=== PATIENT | female | born 1975 | race Two or more races ===

== ENCOUNTER 2024-02-11 19:49 | Inpatient (IN) | payer SELFPAY ==
[~2024-02-11] VITALS: Ht 154.9 cm; Wt 90.6 kg
--- NOTE | 2024-02-11 20:26 | ED.PDOC ---
AUTOMOTIVE PARTS SPECIALIST HPI Comments A 48 year old female presents to the ED with a chief complaint of vaginal bleeding onset 3 weeks. Patient states she began experiencing vaginal bleeding 3 weeks ago. The first week blood was a dark brown color, second week was bright red and the third week was red and heavy bleeding as well as light abdominal cramps and generalized weakness. Patient states she would place new tampon and shortly after the blood would "gush", patient states this bleeding is abnormal for her. She has not seen an OBGYN or PCP due to problems with her insurance. Patient has no past medical history. Denies nausea, vomiting, diarrhea, chest pain, SOB. No other symptoms or modifying factors present at this time. Chief Complaint: Vaginal Bleed Time Seen by MD: 20:18 Reviewed Notes: Medications, Allergies Allergies: Coded Allergies: NO KNOWN ALLERGIES (Unverified , 02/11/24) Information Source: Patient Mode of Arrival: Ambulatory Timing: Weeks Prehospital treatment: None Severity: Moderate Associated Signs and Symptoms: Vaginal Bleeding, Abdominal Pain, Cramping Past Medical History PAST MEDICAL HISTORY: Denies Surgical History: Cholecystectomy, , Tubal Ligation FOLD SKIVER History: No Pertinent FOLD SKIVER History Family History Family History: Reviewed,noncontributory to illness, Unknown Social History Smoker: Non-Smoker Alcohol: Denies ETOH Use Drugs: Denies Drug Use Lives In: Home Constitutional: reports: weakness; denies: chills, diaphoresis, fatigue, fever, malaise, sweats, others EENTM: denies: blurred vision, double vision, ear bleeding, ear discharge, ear drainage, ear pain, ear ringing, eye pain, eye redness, hearing loss, mouth pain, mouth swelling, nasal discharge, nose bleeding, nose congestion, nose pain, photophobia, tearing, throat pain, throat swelling, voice changes, others Respiratory: denies: cough, hemoptysis, orthopnea, SOB at rest, shortness of breath, SOB with excertion, stridor, wheezing, others Cardiovascular: denies: chest pain, dizzy spells, diaphoresis, Dyspnea on exertion, edema, irregular heart beat, left arm pain, lightheadedness, palpitations, PND, syncope, others Gastrointestinal: reports: abdominal pain; denies: abdomen distended, blood streaked bowels, constipated, diarrhea, dysphagia, difficulty swallowing, hematemesis, melena, nausea, poor appetite, poor fluid intake, rectal bleeding, rectal pain, vomiting, others Genitourinary: reports: abnormal vagina bleeding; denies: burning, dyspareunia, dysuria, flank pain, frequency, hematuria, incontinence, pain, , vagina discharge, urgency, others Neurological: denies: dizziness, fainting, headache, left sided numbness, left sided weakness, numbness, paresthesia, pre-existing deficit, right sided numbness, right sided weakness, seizure, speech problems, tingling, tremors, weakness, others Musculoskeletal: denies: back pain, gout, joint pain, joint swelling, muscle pain, muscle stiffness, neck pain, others Integumetry: denies: bruises, change in color, change in hair/nails, dryness, laceration, lesions, lumps, rash, wounds, others Allergic/Immunocompromised: denies: Difficulty Healing, Frequent Infections, Hives, Itching, others Hematologic/Lymphatic: denies: anemia, blood clots, easy bleeding, easy bruising, swollen glands, others Endocrine: denies: excessive hunger, excessive sweating, excessive thirst, excessive urination, flushing, intolerance to cold, intolerance to heat, unexplained weight gain, unexplained weight loss, others Psychiatric: denies: anxiety, bipolar disorder, depression, hopeless, panic disorder, schizophrenia, sleepless, suicidal, others All Other Systems: Reviewed and Negative Physical Exam General Appearance: No Apparent Distress, Normal HEENT: Normal ENT Inspection, Pharynx Normal, TMs Normal Neck: Full Range of Motion, Non-Tender, Normal, Normal Inspection Respiratory: Chest Non-Tender, Lungs Clear, No Accessory Muscle Use, No Respiratory Distress, Normal Breath Sounds Cardiovascular: No Edema, No JVD, No Murmur, No Gallop, Normal Peripheral Pulses, Regular Rate/Rhythm Breast Exam: Deferred Gastrointestinal: No Organomegaly, Non Tender, No Pulsatile Mass, Normal Bowel Sounds, Soft Genitalia: Deferred Pelvic: Deferred Rectal: Deferred Extremities: No calf tenderness, Normal capillary refill, Normal inspection, Normal range of motion, Non-tender, No pedal edema Musculoskeletal : Apperance: Normal Neurologic: Alert, drawer in jacquard loom II-XII nml as Tested, No Motor Deficits, Normal Affect, Normal Mood, No Sensory Deficits Cerebellar Function: Normal Reflexes: Normal Skin: Dry, Normal Color, Warm Lymphatic: No Adenopathy Was a procedure done? Was a procedure done?: No Differential Diagnosis (FOLD SKIVER) Vaginal Bleeding: Blood Loss Anemia, Dysmenorrhea, Menorrhagia, Menstrual Bleeding, UTI Mass / Lesion: N/A Vaginal Discharge: N/A X-Ray, Labs, Meds, VS Vital Signs Date Time Temp Pulse Resp B/P (MAP) Pulse Ox O2 Delivery O2 Flow Rate FiO2 02/11/24 20:12 98.7 88 18 111/69 (83) 97 Lab Test 02/11/24 21:07 02/11/24 20:39 Range/Units Urine Color Light-red Yellow Urine Clarity Turbid H Clear Urine pH 5.5 5.0-9.0 Urine Specific [place] 1.011 1.001-1.035 Urine Protein 1+ H Negative Urine Ketones Trace Negative Urine Blood 3+ H Negative /uL Urine Nitrite Negative Negative Urine Bilirubin Negative Negative Urine Urobilinogen Normal Negative mg/dL Urine Leukocyte Esterase 1+ Negative /uL Urine RBC 1899 0 - 4 /hpf Urine WBC 7 0 - 5 /hpf Urine Squamous Epithelial Cells Few <5 /hpf Urine Bacteria None seen None Seen /hpf Urine Glucose Normal Normal mg/dL White Blood Count 7.7 4.4-10.8 10^3/uL Red Blood Count 4.43 4.0-5.20 10^6/uL Hemoglobin 12.9 12.2-16.2 g/dL Hematocrit 39.1 36.0-46.0 % Mean Corpuscular Volume 88.2 80.0-100.0 fL Mean Corpuscular Hemoglobin 29.2 28.0-32.0 pg Mean Corpuscular Hemoglobin Concent 33.1 32.0-36.0 g/dL Red Cell Distribution Width 15.3 H 11.8-14.3 % Platelet Count 423 140-450 10^3/uL Mean Platelet Volume 6.7 L 6.9-10.8 fL Neutrophils (%) (Auto) 51.0 37.0-80.0 % Lymphocytes (%) (Auto) 32.1 10.0-50.0 % Monocytes (%) (Auto) 7.0 0.0-12.0 % Eosinophils (%) (Auto) 6.6 0.0-7.0 % Basophils (%) (Auto) 3.3 H 0.0-2.0 % Neutrophils # (Auto) 4.0 1.6-8.6 10 ^3/uL Lymphocytes # (Auto) 2.5 0.4-5.4 10 ^3/uL Monocytes # (Auto) 0.5 0-1.3 10 ^3/uL Eosinophils # (Auto) 0.5 0-0.8 10 ^3/uL Basophils # (Auto) 0.3 H 0-0.2 10 ^3/uL Nucleated Red Blood Cells 0.0 % Prothrombin Time 10.7 9.3-11.8 sec Prothrombin Time INR 1.01 0.9-1.15 Sodium Level 140 136-145 mmol/L Potassium Level 4.0 3.5-5.1 mmol/L Chloride Level 109 H 98-107 mmol/L Carbon Dioxide Level 20 20-31 mmol/L Anion Gap 11 5-15 Blood Urea Nitrogen 6 L 9-23 mg/dL Creatinine 0.77 0.550-1.02 mg/dL Glomerular Filtration Rate Calc 96 >90 mL/min BUN/Creatinine Ratio 7.8 L 10.0-20.0 Serum Glucose 99 74-106 mg/dL Calcium Level 8.9 8.7-10.4 mg/dL [place] [id number] Ph: [phone] DIAGNOSTIC IMAGING Diagnostic Imaging Report : [id number] Signed PATIENT: ERIN SAEEDCCT: [id number] UNIT: [id number] : 1975 LOC: ER ROOM / BED: / AGE / SEX: 48 / F ADM STATUS: REG ER SERVICE 19 ORDERING PHYSICIAN: RAMIRO SANTOS MD PROCEDURE(s): ABPLIV - CT AB PEL WITH IV CON ONLY REASON: abdominal pain, vaginal bleeding ORDER NUMBER(s): [id number], ACCESSION NUMBER(s): [id number] Exam: CT CT AB PEL WITH IV CON ONLY History: abdominal pain, vaginal bleeding Comparison Study: None available at time of dictation. Technique: Multidetector spiral CT of the abdomen and pelvis was performed from lung bases to pubic symphysis. Intravenous contrast was administered during this examination. Portal venous imaging was obtained. Axial, coronal and sagittal multiplanar reformats were performed by the technologist on a separate workstation. Radiation Dose : 1. Abdomen/Pelvis: CTDIvol 25 mGy, DLP 1255 mGy*cm. Findings: Lung Bases: No acute or significant lung base finding. Normal heart size. No pleural or pericardial effusion. Liver: The liver is normal in size. No focal lesions. Normal hepatic vascular enhancement. Hepatic steatosis. Gallbladder and Biliary Tree: Gallbladder is surgically absent. Spleen: Unremarkable Pancreas: The pancreas is normal in appearance without focal lesions or abnormal enhancement. Adrenal Glands: Unremarkable Kidneys: Kidneys demonstrate normal symmetric enhancement without focal lesions, calculi or hydronephrosis. Bladder: Unremarkable Bowel: The stomach is grossly normal in appearance. Small bowel and colon are normal in caliber and distribution. Normal appendix is visualized in the right lower quadrant without findings of appendicitis. Ascites: Absent Lymphadenopathy: No mesenteric, retroperitoneal or periportal lymphadenopathy. Abdominal Wall and Mesentery: Unremarkable. Vasculature: The visualized abdominal aorta is normal in size and caliber. Abdo joo and pelvic vessels demonstrate normal enhancement. Pelvic Organs: Left ovarian cyst measuring 2.7 cm. 1 cm hypodensity near the cervix most likely representing an nabothian cyst. Mild distention of the lower uterine segment measuring up to 1.7 cm in AP diameter with internal areas of high attenuation. Musculoskeletal: No aggressive focal bony lesions, acute fractures or dis location. IMPRESSION: Mild distention of the lower uterine segment measuring up to 1.7 cm with internal areas of high attenuation which may represent blood products. Consider further evaluation with pelvic ultrasound. Left ovarian cyst measuring 2.7 cm. ATED BY: BECKI ALBERTS DO DICTATED DATE/TIME: 02/11/242118 SIGNED BY: BECKI ALBERTS DO SIGNED DATE/TIME: 02/11/242118 CC: Time of 1ST Reevaluation: 20:48 Reevaluation 1ST: Unchanged Patient Education/Counseling: Diagnosis, Treatment, Prognosis Family Education/Counseling: No Family Present Departure 1 Departure Time of Disposition: 21:35 (Patient with abdominal pain and uncontrolled vaginal bleeding. We will admit patient for further expert workup) Impression: Primary Impression: Vaginal bleeding Additional Impression: Abdominal pain Qualified Codes: R10.84 - Generalized abdominal pain Disposition: 09 ADMITTED INPATIENT Admit to: Med Surg Condition: Serious Critical Care Note Critical Care Time?: No Stability Stability form required: No I personally scribed for RAMIRO SANTOS MD ([email or web address]) on 02/11/24 at 20:26. Electronically submitted by Nata Ramirez ([email or web address]). I personally scribed for RAMIRO SANTOS MD ([email or web address]) on 02/11/24 at 21:28. Electronically submitted by Nata Ramierz ([email or web address]). RAMIRO SANTOS MD Feb 11, 2024 20:26
[2024-02-11 20:59] LABS: Basophils # (auto) 0.3 10 ^3/uL (0-0.2); Basophils % (auto) 3.3 % (0.0-2.0); Eosinophils # (auto) 0.5 10 ^3/uL (0-0.8); Eosinophils % (auto) 6.6 % (0.0-7.0); Hematocrit 39.1 % (36.0-46.0); Hemoglobin 12.9 g/dL (12.2-16.2); Lymphocytes # (auto) 2.5 10 ^3/uL (0.4-5.4); Lymphocytes % (auto) 32.1 % (10.0-50.0); Mean Corpuscular Hemoglobin 29.2 pg (28.0-32.0); Mean Corpuscular Hgb Conc. 33.1 g/dL (32.0-36.0); Mean Corpuscular Volume 88.2 fL (80.0-100.0); Monocytes # (auto) 0.5 10 ^3/uL (0-1.3); Platelet Count (auto) 423 10^3/uL (140-450); Red Blood Cells 4.43 10^6/uL (4.0-5.20); Red Cell Distribution Width 15.3 % (11.8-14.3); White Blood Cell 7.7 10^3/uL (4.4-10.8)
[2024-02-11 21:00] LABS: Chloride 109 mmol/L (98-107); Sodium 140 mmol/L (136-145)
[2024-02-11 21:01] LABS: Anion Gap 11 (5-15); Carbon Dioxide 20 mmol/L (20-31)
[2024-02-11 21:02] LABS: Calcium 8.9 mg/dL (8.7-10.4)
[2024-02-11] MEDS: IOHEXOL 300 MG/ML 100ML BOTTLE IJ ONE (21:02)
[2024-02-11 21:06] LABS: Glucose 99 mg/dL (74-106)
[2024-02-11 21:07] LABS: BUN/Creatinine Ratio 7.8 (10.0-20.0); Blood Urea Nitrogen 6 mg/dL (9-23)
[2024-02-11 21:08] LABS: Urine Bacteria None Seen /hpf (None Seen)
--- NOTE | 2024-02-11 21:22 | DVH ---
Exam: CT CT AB PEL WITH IV CON ONLY History: abdominal pain, vaginal bleeding Comparison Study: None available at time of dictation. Technique: Multidetector spiral CT of the abdomen and pelvis was performed from lung bases to pubic s ymphysis. Intravenous contrast was administered during this examination. Portal venous imaging was obtained. Axial, coronal and sagittal multiplanar reformats were performed by the technologist on a separate workstation. Radiation Dose : 1. Abdomen/Pelvis: CTDIvol 25 mGy, DLP 1255 mGy*cm. Findings: Lung Bases: No acute or significant lung base finding. Normal heart size. No pleural or pericardial effusion. Liver: The liver is normal in size. No focal lesions. Normal hepatic vascular enhancement. Hepatic s teatosis. Gallbladder and Biliary Tree: Gallbladder is surgically absent. Spleen: Unremarkable Pancreas: The pancreas is normal in appearance without focal lesions or abnormal enhancement. Adrenal Glands: Unremarkable Kidneys: Kidneys demonstrate normal symmetric enhancement without focal lesions, calculi or hydroneph rosis. Bladder: Unremarkable Bowel: The stomach is grossly normal in appearance. Small bowel and colon are normal in caliber and d istribution. Normal appendix is visualized in the right lower quadrant without findings of appendici tis. Ascites: Absent Lymphadenopathy: No mesenteric, retroperitoneal or periportal lymphadenopathy. Abdominal Wall and Mesentery: Unremarkable. Vasculature: The visualized abdominal aorta is normal in size and caliber. Abdominal and pelvic vess els demonstrate normal enhancement. Pelvic Organs: Left ovarian cyst measuring 2.7 cm. 1 cm hypodensity near the cervix most likely repre senting an nabothian cyst. Mild distention of the lower uterine segment measuring up to 1.7 cm in AP diameter with internal areas of high attenuation. Musculoskeletal: No aggressive focal bony lesions, acute fractures or dislocation. IMPRESSION: Mild distention of the lower uterine segment measuring up to 1.7 cm with internal areas of high atten uation which may represent blood products. Consider further evaluation with pelvic ultrasound. Left ovarian cyst measuring 2.7 cm.
[2024-02-11 21:30] LABS: INR 1.01 (0.9-1.15); Prothrombin Time 10.7 sec (9.3-11.8)
[2024-02-11 21:32] LABS: Urine Blood 3+ /uL (Negative); Urine Clarity Turbid (Clear); Urine Color Light-Red (Yellow); Urine Protein, UAD 1+ (Negative); Urine Specific Gravity 1.011 (1.001-1.035); Urine Urobilinogen Normal (Negative); Urine WBC 7 /hpf (0 - 5); Urine pH 5.5 (5.0-9.0)
[2024-02-12] VITALS (9 sets, daily range): BP systolic 90–116; BP diastolic 56–73; PULSE 68–76; RESP 14–20; TEMP 97.5–98.7; O2SAT 94–98
--- NOTE | 2024-02-12 00:24 | DVH ---
PELVIC ULTRASOUND WITH TRANSABDOMINAL AND TRANSVAGINAL IMAGING CLINICAL HISTORY: better evaluate x-ray findings COMPARISON: None TECHNIQUE: Transabdominal and transvaginal grayscale, color-flow Doppler, and duplex Doppler was per formed. FINDINGS: Uterus: Measures 10.5 x 5.8 x 5.3 cm. Solid-appearing uterine myometrial lesion measuring approximate ly 1.5 x 1.3 x 1.5 cm. Multiple nabothian cysts noted. Endometrium: Double thickness of the endometrial stripe measures 1.1 cm. Endometrial thickness is uni form. Right ovary is not visualized. Left ovary measures 3.7 x 2.6 x 3.4 cm. This includes an approximatel y 3.0 x 2.1 x 2.6 cm cyst. Left ovary demonstrates dopplerable blood flow on spectral analysis. Small amount of free fluid in the cul-de-sac. IMPRESSION: Small uterine lesion may represent a fibroid. MRI may be obtained to further evaluate. Multiple presumed nabothian cysts. Left ovarian cyst. Right ovary not visualized. HS:Y
[2024-02-12] MEDS ORDERED: TEMAZEPAM 15 MG CAP PO PRN (00:45)
[2024-02-12] MEDS ORDERED: ACETAMINOPHEN 325 MG TAB PO PRN (00:45)
[2024-02-12] MEDS ORDERED: ONDANSETRON HCL 4 MG/2 ML VIAL IV PRN (00:45)
[2024-02-12] MEDS ORDERED: HYDROcodone-ACET 5/325MG TAB PO PRN (00:45)
--- NOTE | 2024-02-12 05:48 | DVHHP2 ---
History of Present Illness Reason for Visit: Vaginal bleed History of Present Illness 48-year-old female presents for evaluation of vaginal bleed. Patient reports three-week history of irregular vaginal bleed. She states that over the past one-week she has been having bright red heavy bleeding with associated lower cramps. Denies nausea or vomiting. Denies cardiac or respiratory symptoms. Past Medical History Denies Past Surgical History , tubal ligation and cholecystectomy Family History Noncontributory Smoke: No ALCOHOL: none Drugs: None Lives: with Family Review of Systems Review of Systems Review of systems are currently negative otherwise addressed HPI. Allergies: Coded Allergies: NO KNOWN ALLERGIES (Unverified , 02/11/24) Medications Current Medications Medications Dose Ordered Sig/Uyen Route Start Time Stop Time Status Last Admin Dose Admin Ceftriaxone Sodium 50 ml @ 100 mls/hr DAILY@09 IV 02/12/24 09:00 Acetaminophen/ Hydrocodone Bitart 1 tab Q4HP PRN PO 02/12/24 00:45 Temazepam 15 mg QHSP PRN PO 02/12/24 00:45 Ondansetron HCl 4 mg Q4HP PRN IV 02/12/24 00:45 Acetaminophen 650 mg Q6HP PRN PO 02/12/24 00:45 Exam Vital Signs Vital Signs Date Time Temp Pulse Resp B/P (MAP) Pulse Ox O2 Delivery O2 Flow Rate FiO2 02/12/24 05:00 97.5 76 20 103/60 (74) 96 97.5 02/12/24 03:03 Room Air* 0 21 Exam Gen: 48-year-old female in mild distress Skin: Warm, dry, normal color and texture, no rash. HEENT: Normocephalic atraumatic, mucous membranes moist and pink. Neck: Cervical and supraclavicular nodes normal without enlargement, trachea is midline, thyroid gland is normal without masses. Pulmonary: Clear to auscultation and percussion bilaterally. Cardiac: Regular rate and rhythm. No murmur Abdomen: Soft, nontender, nondistended, bowel sounds present all 4 quadrants, no guarding, no rigidity, no organomegaly. Extremities: No cyanosis, clubbing, no edema Neuro: Cranial nerves II through XII grossly intact, normal affect and speech, no focal motor deficits. Labs/Xrays ORDERING PHYSICIAN: RAMIRO SANTOS MD PROCEDURE(s): ABPLIV - CT AB PEL WITH IV CON ONLY REASON: abdominal pain, vaginal bleeding ORDER NUMBER(s): [id number], ACCESSION NUMBER(s): [id number] Exam: CT CT AB PEL WITH IV CON ONLY History: abdominal pain, vaginal bleeding Comparison Study: None available at time of dictation. Technique: Multidetector spiral CT of the abdomen and pelvis was performed from lung bases to pubic symphysis. Intravenous contrast was administered during this examination. Portal venous imaging was obtained. Axial, coronal and sagittal multiplanar reformats were performed by the technologist on a separate workstation. Radiation Dose : 1. Abdomen/Pelvis: CTDIvol 25 mGy, DLP 1255 mGy*cm. Findings: Lung Bases: No acute or significant lung base finding. Normal heart size. No pleural or pericardial effusion. Liver: The liver is normal in size. No focal lesions. Normal hepatic vascular enhancement. Hepatic steatosis. Gallbladder and Biliary Tree: Gallbladder is surgically absent. Spleen: Unremarkable Pancreas: The pancreas is normal in appearance without focal lesions or abnormal enhancement. Adrenal Glands: Unremarkable Kidneys: Kidneys demonstrate normal symmetric enhancement without focal lesions, calculi or hydronephrosis. Bladder: Unremarkable Bowel: The stomach is grossly normal in appearance. Small bowel and colon are normal in caliber and distribution. Normal appendix is visualized in the right lower quadrant without findings of appendicitis. Ascites: Absent Lymphadenopathy: No mesenteric, retroperitoneal or periportal lymphadenopathy. Abdominal Wall and Mesentery: Unremarkable. Vasculature: The visualized abdominal aorta is normal in size and caliber. Abdominal and pelvic vessels demonstrate normal enhancement. Pelvic Organs: Left ovarian cyst measuring 2.7 cm. 1 cm hypodensity near the cervix most likely representing an nabothian cyst. Mild distention of the lower uterine segment measuring up to 1.7 cm in AP diameter with internal areas of high attenuation. Musculoskeletal: No aggressive focal bony lesions, acute fractures or dislocation. IMPRESSION: Mild distention of the lower uterine segment measuring up to 1.7 cm with internal areas of high attenuation which may represent blood products. Consider further evaluation with pelvic ultrasound. Left ovarian cyst measuring 2.7 cm. RING PHYSICIAN: RAMIRO SANTOS MD PROCEDURE(s): PELUS - PELVIC REASON: better evaluate x-ray findings ORDER NUMBER(s): [id number], ACCESSION NUMBER(s): [id number] PELVIC ULTRASOUND WITH TRANSABDOMINAL AND TRANSVAGINAL IMAGING CLINICAL HISTORY: better evaluate x-ray findings COMPARISON: None TECHNIQUE: Transabdominal and transvaginal grayscale, color-flow Doppler, and duplex Doppler was performed. FINDINGS: Uterus: Measures 10.5 x 5.8 x 5.3 cm. Solid-appearing uterine myometrial lesion measuring approximately 1.5 x 1.3 x 1.5 cm. Multiple nabothian cysts noted. Endometrium: Double thickness of the endometrial stripe measures 1.1 cm. Endometrial thickness is uniform. Right ovary is not visualized. Left ovary measures 3.7 x 2.6 x 3.4 cm. This includes an approximately 3.0 x 2.1 x 2.6 cm cyst. Left ovary demonstrates dopplerable blood flow on spectral analysis. Small amount of free fluid in the cul-de-sac. IMPRESSION: Small uterine lesion may represent a fibroid. MRI may be obtained to further evaluate. Multiple presumed nabothian cysts. Left ovarian cyst. Right ovary not visualized. HS:Y Labs Test 02/11/24 21:07 02/11/24 20:39 Range/Units Urine Color Light-red Yellow Urine Clarity Turbid H Clear Urine pH 5.5 5.0-9.0 Urine Specific [place] 1.011 1.001-1.035 Urine Protein 1+ H Negative Urine Ketones Trace Negative Urine Blood 3+ H Negative /uL Urine Nitrite Negative Negative Urine Bilirubin Negative Negative Urine Urobilinogen Normal Negative mg/dL Urine Leukocyte Esterase 1+ Negative /uL Urine RBC 1899 0 - 4 /hpf Urine WBC 7 0 - 5 /hpf Urine Squamous Epithelial Cells Few <5 /hpf Urine Bacteria None seen None Seen /hpf Urine Glucose Normal Normal mg/dL White Blood Count 7.7 4.4-10.8 10^3/uL Red Blood Count 4.43 4.0-5.20 10^6/uL Hemoglobin 12.9 12.2-16.2 g/dL Hematocrit 39.1 36.0-46.0 % Mean Corpuscular Volume 88.2 80.0-100.0 fL Mean Corpuscular Hemoglobin 29.2 28.0-32.0 pg Mean Corpuscular Hemoglobin Concent 33.1 32.0-36.0 g/dL Red Cell Distribution Width 15.3 H 11.8-14.3 % Platelet Count 423 140-450 10^3/uL Mean Platelet Volume 6.7 L 6.9-10.8 fL Neutrophils (%) (Auto) 51.0 37.0-80.0 % Lymphocytes (%) (Auto) 32.1 10.0-50.0 % Monocytes (%) (Auto) 7.0 0.0-12.0 % Eosinophils (%) (Auto) 6.6 0.0-7.0 % Basophils (%) (Auto) 3.3 H 0.0-2.0 % Neutrophils # (Auto) 4.0 1.6-8.6 10 ^3/uL Lymphocytes # (Auto) 2.5 0.4-5.4 10 ^3/uL Monocytes # (Auto) 0.5 0-1.3 10 ^3/uL Eosinophils # (Auto) 0.5 0-0.8 10 ^3/uL Basophils # (Auto) 0.3 H 0-0.2 10 ^3/uL Nucleated Red Blood Cells 0.0 % Prothrombin Time 10.7 9.3-11.8 sec Prothrombin Time INR 1.01 0.9-1.15 Sodium Level 140 136-145 mmol/L Potassium Level 4.0 3.5-5.1 mmol/L Chloride Level 109 H 98-107 mmol/L Carbon Dioxide Level 20 20-31 mmol/L Anion Gap 11 5-15 Blood Urea Nitrogen 6 L 9-23 mg/dL Creatinine 0.77 0.550-1.02 mg/dL Glomerular Filtration Rate Calc 96 >90 mL/min BUN/Creatinine Ratio 7.8 L 10.0-20.0 Serum Glucose 99 74-106 mg/dL Calcium Level 8.9 8.7-10.4 mg/dL Assessment/Plan Assessment/Plan Assessment Menorrhagia Urinary tract infection Plan Admit patient to [facility] to the hospitalist OBGYN consultation Rocephin Transfuse if hemoglobin drops below seven Continue treatment per orders. Plan discussed with: Patient My Orders Orders - MARIE RUELAS AGACNP Procedure Category Date Status Time * Precipitation Equipment Tender Consultation CONS 02/12/24 Transmitted 00:38 Regular Diet DIET 02/12/24 Transmitted Breakfast Ceftriaxone 1gm/50ml PHA 02/12/24 In Process D5w (Rocephin) 09:00 Admit ADMIT 02/12/24 Transmitted 00:38 Hydrocodone-Acet PHA 02/12/24 In Process 5/325mg Tab (Lorena 00:45 Temazepam (Restoril) PHA 02/12/24 In Process 00:45 Ondansetron Hcl PHA 02/12/24 In Process (Zofran) 00:45 Complete Blood Count LAB 02/13/24 Verified 04:00 Condition: Stable IFTIKHAR 02/12/24 In Process 00:38 Acetaminophen Tablet PHA 02/12/24 In Process (Tylenol Tablet) 00:45 Bedrest With Bathroom IFTIKHAR 02/12/24 In Process Privileg 00:38 Date of Service: Feb 12, 2024 Billing Provider: MARIE RUELAS Common Visit Codes: [id number] INP/OBS CARE (HIGH) MARIE RUELAS Feb 12, 2024 05:48
[2024-02-12 08:51] LABS: Hematocrit 38.2 % (36.0-46.0); Hemoglobin 12.8 g/dL (12.2-16.2)
[2024-02-12] MEDS: cefTRIAXone 1GM/50ML D5W 50 ML IV SCH (09:00)
--- NOTE | 2024-02-12 12:59 | DVHINCON2 ---
Date of service: Feb 12, 2024 Reason for Consultation AUB History of Present Illness HPI 48y Ab3 LMP 01/22/24. Patient with history of C/S x3 and BTL Admitted with heavy menstrual bleeding, and no anemia Hb 12.8 Patient endorses irreg menses, worse over the last 4-6 wk. Has been bleeding continuously x 3 weeks At its heaviest, was using 1 pad/tampon every 2 hours. In the last 24 hr has used 6 pads c/o bloating and cramps with menses. Pelvic US reveals normal sized uterus 10/5 x 5.8 x 5.3 cm with a 1.5cm intramural fibroid, and 1.1cm endometrial stripe. Rt Ovary not seen. Lt ovary 3 cm simple cyst. test, not in chart. [facility] history: Last PAP X > 10 yr ago, denies known prior abnormal pap smears PMHx: Denies all, denies prior anemia or blood transfusion Surg hx: C/S x 3, BTL, Lap Cholecystectomy 2017 Allergies: NKDA Social Hx: Vape daily x 3 yr, prior tobacco smoker, EtOH 2 beers/day x 1 year Family Hx: grandmother lung CA. Denies FHx of breast, uterine or cervical CA. Home Meds No Active Prescriptions or Reported Meds Past Medical History Patient Family History: Patient reports no known family medical history. Review of Systems Constitutional: No symptom reported Ears, Nose, & Throat: No symptom reported Eyes: No symptom reported Pulmonary/Respiratory: No symptom reported Cardiovascular: No symptom reported Gastrointestinal: No symptom reported Genitourinary: No symptom reported Musculoskeletal: No symptom reported Skin: No symptom reported Psychiatric: No symptom reported Endocrine: No symptom reported Hemotologic/Lymphatic: No symptom reported H&P Exam Vital Signs Vital Signs Date Time Temp Pulse Resp B/P (MAP) Pulse Ox O2 Delivery O2 Flow Rate FiO2 02/12/24 12:44 98.0 69 17 110/70 (83) 98 98.0 02/12/24 08:00 Room Air* 0 21 General Appeara: Normal Appearance, Obese Head Exam: Normal inspection Neck Exam: Normal inspection Eye Exam: bilateral eye PERRL Pulmonary/Respiratory: Normal inspection Cardiovascular/Chest: Normal inspection Abdominal Exam: Normal bowel sounds, Soft, No tenderness, No hepatospenomegaly, No masses Rectal Exam: Deferred Pelvic Exam: Not done [employer] Exam: Normal hearing Thoughts/Psych: Normal thought pattern Labs/Xrays Labs Test 02/12/24 08:02 02/11/24 21:07 02/11/24 20:39 Range/Units Hemoglobin 12.8 12.2-16.2 g/dL Hematocrit 38.2 36.0-46.0 % Urine Color Light-red Yellow Urine Clarity Turbid H Clear Urine pH 5.5 5.0-9.0 Urine Specific [place] 1.011 1.001-1.035 Urine Protein 1+ H Negative Urine Ketones Trace Negative Urine Blood 3+ H Negative /uL Urine Nitrite Negative Negative Urine Bilirubin Negative Negative Urine Urobilinogen Normal Negative mg/dL Urine Leukocyte Esterase 1+ Negative /uL Urine RBC 1899 0 - 4 /hpf Urine WBC 7 0 - 5 /hpf Urine Squamous Epithelial Cells Few <5 /hpf Urine Bacteria None seen None Seen /hpf Urine Glucose Normal Normal mg/dL White Blood Count 7.7 4.4-10.8 10^3/uL Red Blood Count 4.43 4.0-5.20 10^6/uL Mean Corpuscular Volume 88.2 80.0-100.0 fL Mean Corpuscular Hemoglobin 29.2 28.0-32.0 pg Mean Corpuscular Hemoglobin Concent 33.1 32.0-36.0 g/dL Red Cell Distribution Width 15.3 H 11.8-14.3 % Platelet Count 423 140-450 10^3/uL Mean Platelet Volume 6.7 L 6.9-10.8 fL Neutrophils (%) (Auto) 51.0 37.0-80.0 % Lymphocytes (%) (Auto) 32.1 10.0-50.0 % Monocytes (%) (Auto) 7.0 0.0-12.0 % Eosinophils (%) (Auto) 6.6 0.0-7.0 % Basophils (%) (Auto) 3.3 H 0.0-2.0 % Neutrophils # (Auto) 4.0 1.6-8.6 10 ^3/uL Lymphocytes # (Auto) 2.5 0.4-5.4 10 ^3/uL Monocytes # (Auto) 0.5 0-1.3 10 ^3/uL Eosinophils # (Auto) 0.5 0-0.8 10 ^3/uL Basophils # (Auto) 0.3 H 0-0.2 10 ^3/uL Nucleated Red Blood Cells 0.0 % Prothrombin Time 10.7 9.3-11.8 sec Prothrombin Time INR 1.01 0.9-1.15 Sodium Level 140 136-145 mmol/L Potassium Level 4.0 3.5-5.1 mmol/L Chloride Level 109 H 98-107 mmol/L Carbon Dioxide Level 20 20-31 mmol/L Anion Gap 11 5-15 Blood Urea Nitrogen 6 L 9-23 mg/dL Creatinine 0.77 0.550-1.02 mg/dL Glomerular Filtration Rate Calc 96 >90 mL/min BUN/Creatinine Ratio 7.8 L 10.0-20.0 Serum Glucose 99 74-106 mg/dL Calcium Level 8.9 8.7-10.4 mg/dL Assessment/Plan Admitting Diagnosis: AUB, excessive mentstruation Uterine fibroid 1.5cm (not clinically significant) Left ovarian cyst (follicular cyst 3cm) Plan The patient requires a pelvic exam, pap smear/ HPV testing, endometrial biopsy in [facility] (out[facility]) No acute [facility] intervention indicated at this time Recommend test (even though history of BTL), LFT's, and FSH/E2, Prolactin levels Consider OCP's if LFT's WNL and / or Lysteda 650mg 2 tabs TID x 5d each menstrual cycle for AUB [facility] WILL SIGN OFF. Plan discussed with: Patient Date of Service: Feb 12, 2024 Billing Provider: IGOR NAVARRO DO Common Visit Codes: CONSULT ONLY Consultation Codes: [id number] CONSULT <60MIN IGOR NAVARRO DO Feb 12, 2024 12:59
[2024-02-12 13:40] LABS: Follicle Stimulating Hormone 2.78 IU/L (SEE BELOW); Prolactin 18.55 ng/mL (2.8-29.2)
[2024-02-12 14:08] LABS: Alanine Aminotransferase 43 U/L (7-40)
[2024-02-12 14:09] LABS: Aspartate Aminotransferase 31 U/L (13-40)
--- NOTE | 2024-02-12 15:06 | DVHPN2 ---
Subjective Patient continues to report having abdominal cramping. Patient also continues to report having heavy menstruation. Reviewed: Care Plan, H&P, Labs, Medications, Previous Orders Changes from previous H/P or p: No Changes General: Per HPI Objective Vitals Vital Signs Date Time Temp Pulse Resp B/P (MAP) Pulse Ox O2 Delivery O2 Flow Rate FiO2 02/12/24 12:44 98.0 69 17 110/70 (83) 98 98.0 02/12/24 08:00 Room Air* 0 21 Intake/Output Intake and Output 02/12/24 07:00 Intake Total 240 ml Balance 240 ml Intake Oral 240 ml # Voids 1 General Appearance: Alert, Oriented X3, Cooperative HEENT: Atraumatic, PERRLA Lungs: Clear to auscultation, Normal air movement Cardiovascular: Normal S1, Normal S2 Abdomen: Normal bowel sounds, Soft Musculoskeletal: Normal sensory function, Normal motor function Neuro: Normal speech Psych/Mental Status: Mental status NL, Mood NL Medications Current Medications Medications Dose Ordered Sig/Uyen Route Start Time Stop Time Status Last Admin Dose Admin Ceftriaxone Sodium 50 ml @ 100 mls/hr DAILY@09 IV 02/12/24 09:00 02/12/24 09:00 100 MLS/HR Acetaminophen/ Hydrocodone Bitart 1 tab Q4HP PRN PO 02/12/24 00:45 Temazepam 15 mg QHSP PRN PO 02/12/24 00:45 Ondansetron HCl 4 mg Q4HP PRN IV 02/12/24 00:45 Acetaminophen 650 mg Q6HP PRN PO 02/12/24 00:45 Laboratory Results Laboratory Tests 02/11/24 20:39 02/12/24 08:02 Chemistry Test 02/11/24 20:39 Calcium Level 8.9 mg/dL (8.7-10.4) Coagulation Test 02/11/24 20:39 Prothrombin Time 10.7 sec (9.3-11.8) Prothrombin Time INR 1.01 (0.9-1.15) LFT Test 02/12/24 08:02 Alanine Aminotransferase (ALT) 43 U/L (7-40) H Aspartate Amino Transferase (AST) 31 U/L (13-40) Urinalysis Test 02/11/24 21:07 Urine Color Light-red (Yellow) Urine Clarity Turbid (Clear) H Urine pH 5.5 (5.0-9.0) Urine Specific [place] 1.011 (1.001-1.035) Urine Protein 1+ (Negative) H Urine Ketones Trace (Negative) Urine Blood 3+ /uL (Negative) H Urine Nitrite Negative (Negative) Urine Bilirubin Negative (Negative) Urine Urobilinogen Normal mg/dL (Negative) Urine Leukocyte Esterase 1+ /uL (Negative) Urine RBC 1899 /hpf (0 - 4) Urine WBC 7 /hpf (0 - 5) Urine Squamous Epithelial Cells Few /hpf (<5) Urine Bacteria None seen /hpf (None Seen) Urine Glucose Normal mg/dL (Normal) Labs and/or images reviewed: Labs reviewed by me, Image(s) reviewed by me Assessment/Plan Assessment/Plan Impression: -uterine fibroids -primary hypertension -obesity Plan: -OBGYN consultation: Recommendations reviewed. We will start oral contraceptives if available in the hospital -pain management -DC planning for tomorrow Total time spent with patient discussing and formulating plan of care: 35 minutes. This medical document was created using an electronic medical record system with [employer] dictation system. Although this document has been carefully reviewed, there may still be some phonetic and typographical errors. These areas are purely typographical due to imperfections of the software programs, and do not reflect any compromise in the patient's medical care. Plan discussed with: Patient, Other (RN) Date of Service: Feb 12, 2024 Billing Provider: JIMENA NARAYAN NP Common Visit Codes: [id number] INP/OBS CARE(HIGH) JIMENA NARAYAN NP Feb 12, 2024 15:06
[2024-02-13 01:03] VITALS: BP 97/54; PULSE 75; RESP 14; TEMP 98; O2SAT 97
[2024-02-13 05:00] VITALS: BP 110/68; PULSE 54; RESP 16; TEMP 98.1; O2SAT 98
[2024-02-13 07:41] LABS: Basophils # (auto) 0.1 10 ^3/uL (0-0.2); Eosinophils # (auto) 0.6 10 ^3/uL (0-0.8); Eosinophils % (auto) 7.7 % (0.0-7.0); Hematocrit 36.4 % (36.0-46.0); Hemoglobin 11.9 g/dL (12.2-16.2); Lymphocytes # (auto) 1.8 10 ^3/uL (0.4-5.4); Lymphocytes % (auto) 23.8 % (10.0-50.0); Mean Corpuscular Hemoglobin 29.1 pg (28.0-32.0); Mean Corpuscular Hgb Conc. 32.6 g/dL (32.0-36.0); Mean Corpuscular Volume 89.1 fL (80.0-100.0); Monocytes # (auto) 0.6 10 ^3/uL (0-1.3); Monocytes % (auto) 7.8 % (0.0-12.0); Neutrophils # (auto) 4.5 10 ^3/uL (1.6-8.6); Neutrophils % (auto) 59.7 % (37.0-80.0); Nucleated Red Blood Cells % 0.1 %; Platelet Count (auto) 412 10^3/uL (140-450); Red Blood Cells 4.08 10^6/uL (4.0-5.20); Red Cell Distribution Width 15.4 % (11.8-14.3); White Blood Cell 7.5 10^3/uL (4.4-10.8)
[2024-02-13 08:00] VITALS: PULSE 68; RESP 14; RESP 18; O2SAT 94
[2024-02-13] MEDS ORDERED: PROG100C23 PO (08:19)
--- NOTE | 2024-02-13 08:21 | DVHDS2 ---
Discharge Summary Date of Admission Feb 12, 2024 at 00:38 Date of Discharge: Feb 13, 2024 Admitting Diagnosis Vaginal bleeding Labs/Diagnostic Data: Laboratory Results Test 02/13/24 07:05 02/12/24 14:54 02/12/24 08:02 02/11/24 21:07 White Blood Count 7.5 10^3/uL (4.4-10.8) Red Blood Count 4.08 10^6/uL (4.0-5.20) Hemoglobin 11.9 g/dL (12.2-16.2) Hematocrit 36.4 % (36.0-46.0) Mean Corpuscular Volume 89.1 fL (80.0-100.0) Mean Corpuscular Hemoglobin 29.1 pg (28.0-32.0) Mean Corpuscular Hemoglobin Concent 32.6 g/dL (32.0-36.0) Red Cell Distribution Width 15.4 % (11.8-14.3) Platelet Count 412 10^3/uL (140-450) Mean Platelet Volume 6.7 fL (6.9-10.8) Neutrophils (%) (Auto) 59.7 % (37.0-80.0) Lymphocytes (%) (Auto) 23.8 % (10.0-50.0) Monocytes (%) (Auto) 7.8 % (0.0-12.0) Eosinophils (%) (Auto) 7.7 % (0.0-7.0) Basophils (%) (Auto) 1.0 % (0.0-2.0) Neutrophils # (Auto) 4.5 10 ^3/uL (1.6-8.6) Lymphocytes # (Auto) 1.8 10 ^3/uL (0.4-5.4) Monocytes # (Auto) 0.6 10 ^3/uL (0-1.3) Eosinophils # (Auto) 0.6 10 ^3/uL (0-0.8) Basophils # (Auto) 0.1 10 ^3/uL (0-0.2) Nucleated Red Blood Cells 0.1 % Aspartate Amino Transferase (AST) 31 U/L (13-40) Alanine Aminotransferase (ALT) 43 U/L (7-40) Follicle Stimulating Hormone 2.78 IU/L (SEE BELOW) Prolactin 18.55 ng/mL (2.8-29.2) Beta HCG, Quantitative 0.1 mIU/mL (1.5-4.2) Urine Color Light-red (Yellow) Urine Clarity Turbid (Clear) Urine pH 5.5 (5.0-9.0) Urine Specific [place] 1.011 (1.001-1.035) Urine Protein 1+ (Negative) Urine Ketones Trace (Negative) Urine Blood 3+ /uL (Negative) Urine Nitrite Negative (Negative) Urine Bilirubin Negative (Negative) Urine Urobilinogen Normal mg/dL (Negative) Urine Leukocyte Esterase 1+ /uL (Negative) Urine RBC 1899 /hpf (0 - 4) Urine WBC 7 /hpf (0 - 5) Urine Squamous Epithelial Cells Few /hpf (<5) Urine Bacteria None seen /hpf (None Seen) Urine Glucose Normal mg/dL (Normal) Test 02/11/24 20:39 Prothrombin Time 10.7 sec (9.3-11.8) Prothrombin Time INR 1.01 (0.9-1.15) Sodium Level 140 mmol/L (136-145) Potassium Level 4.0 mmol/L (3.5-5.1) Chloride Level 109 mmol/L (98-107) Carbon Dioxide Level 20 mmol/L (20-31) Anion Gap 11 (5-15) Blood Urea Nitrogen 6 mg/dL (9-23) Creatinine 0.77 mg/dL (0.550-1.02) Glomerular Filtration Rate Calc 96 mL/min (>90) BUN/Creatinine Ratio 7.8 (10.0-20.0) Serum Glucose 99 mg/dL (74-106) Calcium Level 8.9 mg/dL (8.7-10.4) Other Laboratory Tests 02/13/24 07:05 02/11/24 20:39 Brief Hx & Hospital Course: History of Present Illness 48-year-old female presents for evaluation of vaginal bleed. Patient reports three-week history of irregular vaginal bleed. She states that over the past one-week she has been having bright red heavy bleeding with associated lower cramps. Denies nausea or vomiting. Denies cardiac or respiratory symptoms. Course of hospitalization: Patient had OBGYN consultation. Recommendations reviewed. Patient was to follow up as an outpatient for Pap smear and other testing. Patient was kept in the hospital to monitor for significant vaginal bleeding as well monitoring for severe anemia. Patient is hemodynamically stable. She will be discharged home and be treated with progesterone tablets. Patient was agreeable this discharge plan. She will follow up with Dr. Ramesh Holman within 1-2 weeks. All questions answered. Total time spent with patient discussing and formulating plan of care: 35 minutes. This medical document was created using an electronic medical record system with [employer] system. Although this document has been carefully reviewed, there may still be some phonetic and typographical errors. These areas are purely typographical due to imperfections of the software programs, and do not reflect any compromise in the patient's medical care. Consults/Reason for consult OBGYN: Uterine fibroids Condition at Discharge: Fair Final Diagnosis/Problems List Severe abdominal pain secondary to uterine fibroids Secondary Diagnosis: -uterine fibroids -primary hypertension -obesity Discharge Disposition: Home Discharge Instruct/Medications Diet: Regular Activity: No Restrictions, As Tolerated Follow Up/Referral: Follow up with Dr. Acosta in one week Medications: Oral contraceptive pills for one month take as directed [id number] analgesics for menstrual cramps 36 Discharge Statement: "Patient was advised to return to the ER or call 911 if any headaches, dizziness, shortness of breath, chest pain, abdominal pain, bleeding, fevers, or worsening of medical condition. Patient was counseled about treatment plan, medications, possible side effects, patientverbalized understanding. All questions were answered to the best of my ability. This discharge took greater then 30 minutes in planning, reviewing documentation, counseling the patient, and discussing with other team members." ASSESSMENT ASSESSMENT Assessment Severe abdominal pain secondary to uterine fibroids Date of Service: Feb 13, 2024 Billing Provider: JIMENA NARAYAN NP Common Visit Codes: 67025-ASA/OBS DISCH DAY >30min JIMENA NARAYAN NP Feb 13, 2024 08:21
[2024-02-13 09:03] VITALS: BP 119/81; PULSE 67; RESP 18; TEMP 97.8; O2SAT 97
[2024-02-13 09:21] VITALS: BP 118/81; PULSE 69; RESP 18; TEMP 36.6; O2SAT 98
== END 2024-02-13 11:20 | disposition home or self-care (01) | DRG 760 ==
LOC: ER 19:49 → OVERFLOW 02-12 00:38 → WEST WING 02-12 00:42 → TELE-CENTR 02-12 15:39 → WEST WING 02-12 15:54
PROVIDERS: ADMIT Nurse Practitioner; ATTEND Nurse Practitioner Acute Care
DX: D25.9 Leiomyoma of uterus, unspecified (principal); N39.0 Urinary tract infection, site not specified; N92.0 Excessive and frequent menstruation with regular cycle; N83.202 Unspecified ovarian cyst, left side; I10 Essential (primary) hypertension; E66.9 Obesity, unspecified; N83.00 Follicular cyst of ovary, unspecified side; Z90.49 Acquired absence of other specified parts of digestive tract; Z98.891 History of uterine scar from previous surgery; Z68.37 Body mass index [BMI] 37.0-37.9, adult
CPT/HCPCS: 36415; 74177; 80048; 81001; 82670; 83001; 84146; 84450; 84460; 84702; 85014; 85018; 85025; 85610; G0378